=== PATIENT | male | born 1995 | race Caucasian/White ===

== ENCOUNTER 2020-12-14 09:08 | Emergency (ER) | payer BC, SELFPAY ==
[2020-12-14 09:25] VITALS: BP 122/80; PULSE 51; RESP 16; TEMP 36.6; O2SAT 100; BMI 19.5
[2020-12-14 10:00] VITALS: BP 112/70; PULSE 63; RESP 14; O2SAT 100
[2020-12-14 10:18] VITALS: BP 131/108; PULSE 48; RESP 16; TEMP 36.3; O2SAT 100
--- NOTE | 2020-12-14 10:18 | US_ITS ---
WS: [id number] SCROTAL ULTRASOUND REASON FOR EXAM: L testicular pain COMPARISON: None available. TECHNIQUE: Grayscale and duplex color Doppler ultrasound examination of the scrotum. FINDINGS: RIGHT: Right testes measures 5.4 cm x 3.0 cm x 2.9 cm. Normal blood flow. Right epididymis measures 1.1 cms in maximum dimension. LEFT: Left testes measures 4.8 cm x 3.2 cm x 2.4 cm. Small hydrocele. Normal blood flow Left epididymis 3.74 cm in maximum dimension. US/US scrotum [id number] IMPRESSION: No findings of testicular torsion. Findings most compatible with epididymoorchi tis of the left hemiscrotum.
--- NOTE | 2020-12-14 10:19 | ED_ITS ---
HPI - Male Genitourinary General: Chief complaint: Urogenital-Male Stated complaint: Pain in Groin Time Seen by Provider: 12/14/20 09:57 Source: patient Mode of arrival: ambulatory Limitations: no limitations History of Present Illness: HPI Narrative: Patient is a 25-year-old male who presents to ED today with a complaint of left testicular pain that began around 6 AM after he woke from sleep. He states pain was initially constant and throughout work waxed and waned. He has not noticed any swelling, redness, or warmth. He is not complaining of any penile discharge or dysuria. He has not noticed any rashes or lesions. Denies new sexual partners-monogamous with of four years. MD Complaint: testicle pain Onset (ago): hour(s) Duration: constant and intermittent Location: left testicle Severity: moderate Quality: aching and sharp Relieving factors: none Exacerbating factors: none Associated symptoms: Reports no associated symptoms; Deny dysuria, hematuria, nausea, urinary incontinence or vomiting Review of Systems Const: Denies: fever(s), chills, body aches, fatigue or malaise ENMT: Denies: throat pain or odynophagia Card: Denies: chest pain Resp: Denies: dyspnea GI: Denies: abdominal pain, nausea, vomiting or diarrhea : Reports: testicular pain; Denies: flank pain, difficulty urinating, dysuria, urinary frequency, urinary urgency, urinary hesitancy, change in urine stream, urinary incontinence, hematuria, genital lesions, penile discharge, testicular mass, scrotal swelling, difficulty with ejactulations, painful ejaculations, hematospermia or erectile dysfunction Musc: Denies: neck pain or back pain Skin/Breast: Denies: rash Neuro: Denies: headache(s) Physical Exam Const: COMMON NORMALS: no acute distress, average body habitus, patient oriented x3, no limitations, healthy appearing, alert and well nourished GI: COMMON NORMALS: Normal to inspection, nondistended, normoactive bowel sounds present, Soft to palpation, non-tender, No hepatosplenomegaly present and no masses PALPATION: Yes Soft to palpation and Yes No hepatosplenomegaly present : COMMON NORMALS: Yes no CVA tenderness, Yes normal external exam, Yes no sc rotal swelling and Yes No hernias present BLADDER/KIDNEY EXAM: Yes no CVA tenderness PENIS: normal penis and circumcised MEATUS: meatus normal and no meatla discharge SCROTUM: Yes testes descended bilaterally TESTES: Yes testicular lie normal and Yes epididymal tenderness (L) Back/Pelvis: COMMON NORMALS: no CVA tenderness Neuro: COMMON NORMALS: patient oriented x3 SENSORIUM/ORIENTATION: Yes alert Course Vital Signs: Vital signs: Vital Signs Temperature 97.3 F L 12/14/20 10:18 Pulse Rate 48 L 12/14/20 10:18 Respiratory Rate 16 12/14/20 10:18 Blood Pressure 131/108 12/14/20 10:18 Pulse Oximetry 100 12/14/20 10:18 MDM - Male MDM Narrative: Medical decision making narrative: Patient with mild left epididymoorchitis. Given IM rocephin here and will be sent home on doxycycline. Gonorrhea/chlamydia ran off of his urine. Patient states he is monogamous with his for a years. Recommend abstaining from sexual activity until he knows results. Return to ED precautions given. Lab Data: Labs: Lab Results 12/14/20 Range/Units 10:54 Urine Color Yellow (Yellow) Urine Appearance Clear (CLEAR) Urine pH 6.5 (5-7) Ur Specific Gravit y 1.015 (1.005-1.030) Urine Protein Neg (Negative) Urine Glucose (UA) Norm (Normal) Urine Ketones Negative (Negative) Urine Blood Neg (Negative) Urine Nitrate Negative (Negative) Urine Bilirubin Neg (Negative) Urine Urobilinogen 1 H (Negative) mg/dL Ur Leukocyte Lynnette ase Negative (Negative) Imaging Data: US scrotum: Radiologist's impression: [address] [id number] ReportSigned Patient: Gianni Landry #: [id number]: 1995Acct#:[id number]/Sex: MAD Date: 12/14/20Loc: ERRoom/Bed:Attending Dr: Ordering Provider/Ordering MD: Wendy Malone Date of Service: 12/14/20 Procedure(s): US scrotum 52322 Accession Number(s): [id number] Report Number: [id number] WS: [id number] SCROTAL ULTRASOUND REASON FOR EXAM: L testicular pain COMPARISON: None available. TECHNIQUE: Grayscale and duplex color Doppler ultrasound examination of the scrotum. FINDINGS: RIGHT: Right testes measures 5.4 cm x 3.0 cm x 2.9 cm. Normal blood flow. Right epididymis measures 1.1 cms in maximum dimension. LEFT: Left testes measures 4.8 cm x 3.2 cm x 2.4 cm. Small hydrocele. Normal blood flow Left epididymis 3.74 cm in maximum dimension. US/US scrotum [id number] IMPRESSION: No findings of testicular torsion. Findings most compatible with epididymoorchitis of the left hemiscrotum. Dictated By:Daniel Quinones Jr MDSigned By:Daniel Quinones Jr MDSigned Date/Time:12/14/20 1118DD/ 1108 Discharge Plan Discharge Patient Disposition: Home Clinical Impression: Left epididymitis Condition: Stable Prescriptions: New doxycycline monohydrate 100 mg capsule 100 mg PO Q12H 10 Days Qty: 20 RF: 0 Discharge Orders: Discharge ED (Routine); Ordered 12/14/20 Ordered By: Wendy Malone Patient Instructions: Epididymitis (ED), Epididymo-orchitis (ED) Activity Restrictions/Additional Instructions: Please refrain from sexual activity until you know the results of your swabs today. Please fill and finish full antibiotic course. As we discussed ice and elevation to the scrotum. If symptoms do not improve over the next 3 to 4 days please follow-up with primary care as you may require a referral to a urologist. You need to return to the emergency department for severe pain, redness, swelling, or any other concerns you may have. Coding Level of Care Code ED [employer] for Anitag Fwd Exam Expanded Problem Focused
[2020-12-14 11:09] LABS: Add Urine Microscopic? NO; Charge for UA Resulting for Rev
[2020-12-14 11:16] LABS: Bilirubin Urine Neg (Negative); Blood Urine Neg (Negative); Glucose Urine UA Norm (Normal); Ketones Urine Negative (Negative); Leukocyte Esterase Urine Negative (Negative); Nitrate Urine Negative (Negative); Protein Urine Neg (Negative); Specific Gravity, Urine 1.015 (1.005-1.030); Urine Appearance Clear (CLEAR); Urine Color Yellow (Yellow); Urobilinogen Urine 1 mg/dL (Negative); pH Urine 6.5 (5-7)
[2020-12-14 12:19] VITALS: BP 103/72; PULSE 47; O2SAT 100
== END 2020-12-14 12:21 | disposition home or self-care (01) ==
PROVIDERS: Emergency Provider Physician Assistant
DX: N45.1 Epididymitis (principal)
CPT/HCPCS: 76870; 81003; 87491; 87591; 99283

== ENCOUNTER 2021-07-02 20:14 | Emergency (ER) | payer BC, SELFPAY ==
[2021-07-02 20:19] VITALS: PULSE 70; RESP 16; TEMP 37.2; O2SAT 99; BMI 19.0
--- NOTE | 2021-07-02 21:16 | W.ED.GENADLT ---
Documented by User: BEN Ji 07/02/21 23:08 HPI - General Adult General: Chief complaint: General Medical Stated complaint: ABD Pain\Back Pain Time Seen by Provider: 07/02/21 21:16 History of Present Illness: 26-year-old male patient comes in today with complaints of headache starting last night. Today he started having severe abdominal pain in the left flank radiating into his abdomen. Patient reported that the headache stopped when his abdominal pain started. On exam patient appears well. Patient appears no pain. Patient reported that on arrival his pain had resolved and he was back to normal. Associated symptoms: Reports headache(s) Review of Systems GI: Reports: abdominal pain Neuro: Reports: headache(s) PFSH ED PFSH: Social History (Updated 12/28/20 @ 15:12 by Gorge Yost LPN) Smoking and tobacco status: never smoked Alcohol intake: current Alcohol intake frequency: holidays/special occasions only Physical Exam Const: COMMON NORMALS: alert HENMT: COMMON NORMALS: normocephalic HEAD & SCALP: normocephalic Neck/C-Spine: COMMON NORMALS: full ROM and no meningeal signs Resp: COMMON NORMALS: normal respiratory effort and clear to auscultation bilaterally AUSCULTATION: clear to auscultation bilaterally Cardio: COMMON NORMALS: regular rate and regular rhythm RATE: regular rate RHYTHM: regular rhythm GI: COMMON NORMALS: Soft to palpation and non-tender PALPATION: Yes Soft to palpation : COMMON NORMALS: Yes no CVA tenderness BLADDER/KIDNEY EXAM: Yes no CVA tenderness Back/Pelvis: COMMON NORMALS: no CVA tenderness Extremity: COMMON NORMALS: normal to inspection Neuro: SENSORIUM/ORIENTATION: Yes alert MENINGEAL SIGNS: Yes no meningeal signs Psych: COMMON NORMALS: cooperative Skin: COMMON NORMALS: no rashes or lesions noted GENERAL SKIN EXAM: no rashes or lesions noted Course Vital Signs: Vital signs: Vital Signs Temperature 98.9 F 07/02/21 20:19 Pulse Rate 70 07/02/21 20:19 Respiratory Rate 16 07/02/21 20:19 Pulse Oximetry 99 07/02/21 20:19 [facility] - General Adult Medical Decision Making 26-year-old male comes in today with complaints of headache starting last night and abdominal pain today. Patient reports that last night around 7:00 he started having a headache with sensitivity to light and nausea. Patient kept the headache for most of the day until around 4:00 this evening. At that time patient started having onset of severe abdominal cramping and discomfort and relief of headache. Patient says since arriving to the ER at 830 his headache and abdominal pain resolved. On exam patient appears well. Patient has some muscle tenderness in the lumbar spine and of his back. No spinal tenderness is noted. No meningeal sign is noted. Patient moves all extremities well. Vital signs are normal. Differential diagnosis includes migraine syndrome, viral syndrome, renal calculi. Urinalysis had significant amount of blood. CBC was unremarkable. CMP did have some elevation in bilirubin and lipase which may relate some gallbladder disease but remainder of liver enzymes were normal. CT of abdomen pelvis noted a nonobstructing 2 mm calculus in the mid left kidney but otherwise no other abnormality was noted. I believe the patient probably had a kidney stone that passed and he has resolved to normal. Recommended monitoring for fever or other symptoms and return as needed. Patient reported understanding and agreed to plan. Lab Data : 07/02/21 21:20 07/02/21 21:20 Radiology Impressions Abdomen/Pelvis CT 07/02/21 21:47 IMPRESSION: 1. Nonobstructing 2 mm calculus in the mid left kidney, series 2, image 43. No additional renal calculi noted on either side. No hydronephrosis. Ureters are unremarkable as demonstrated. No obstructive uropathy demonstrated. 2. The other solid organs are unremarkable as demonstrated. 3. No acute bowel abnormality identified. Laboratory Results WBC 6.6 10^3/uL (4.0-10.0) 07/02/21 21: RBC 4.73 10^6/uL (4.1-5.3) 07/02/21 21:20 Hgb 14.3 g/dL (11.7-16.6) 07/02/21 21: Hct 43.1 % (42.0-52.0) 07/02/21: MCV 91.1 fl (80-94) 07/02/21 21:20 MCH 30.2 pg (28.0-34.0) 07/02/21 21: MCHC 33.2 g/dL (30.0-36.0) 07/02/21: RDW 12.1 % (12.1-15.1) 07/02/21 21:20 Plt Count 226 10^3/cmm (130-400) 07/02/21 21:20 MPV 10.7 fL (7.4-10.4) H 07/02/21 21:20 Neut % (Auto) 65.8 % 07/02/21 21:20 Lymph % (Auto) 12.7 % 07/02/21 21:20 Barber % (Auto) 19.8 % 07/02/21 21:20 Eos % (Auto) 0.6 % 07/02/21 21:20 Baso % (Auto) 0.8 % 07/02/21 21:20 Neut # (Auto) 4.31 10^3/uL (1.8-7.7) 07/02/21 21:20 Lymph # (Auto) 0.8 10^3/uL (0.8-4.8) 07/02/21 21:20 Barber # (Auto) 1.3 10^3/uL (0.2-0.9) H 07/02/21 21:20 Eos # (Auto) 0.0 10^3/uL (0.0-0.8) 07/02/21 21:20 Baso # (Auto) 0.1 10^3/uL (0.0-0.1) 07/02/21 21:20 Nucleated RBC % (auto) 0 % 07/02/21 21:20 Nucleated RBCs # 0.0 /100WBC 07/02/21 21:20 Sodium 136 mmol/L (136-145) 07/02/21 21:20 Potassium 4.1 mmol/L (3.5-5.1) 07/02/21 21:20 Chloride 99 mmol/L (98-107) 07/02/21 21:20 Carbon Dioxide 26 mmol/L (22-29) 07/02/21 21:20 Anion Gap 15.1 (5-19) 07/02/21 21:20 BUN 12 mg/dL (6-20) 07/02/21 21:20 Creatinine 0.7 mg/dL (0.7-1.2) 07/02/21 21:20 GFR Calculation 134.3 mL/min (90-130) H 07/02/21 21:20 Glucose 87 mg/dL (65-115) 07/02/21 21:20 Calculated Osmolality 281 mOsm/kg (285-295) L 07/02/21 21:20 Calcium 8.6 mg/dL (8.5-10.5) 07/02/21 21:20 Total Bilirubin 1.6 mg/dL (0.15-1.2) H 07/02/21 21:20 AST 18 U/L (0-40) 07/02/21 21: ALT 10 U/L (0-41) 07/02/21 21:20 Alkaline Phosphatase 91 IU/L (40-130) 07/02/21 21:20 Total Protein 7.7 g/dL (6.6-8.7) 07/02/21 21: Albumin 5.0 g/dL (3.5-5.2) 07/02/21 21: Globulin 2.7 g/dL (1.3-4.6) 07/02/21 21: Lipase 72 U/L (13-60) H 07/02/21 21:20 Urine Color Yellow (Yellow) 07/02/21 21: Urine Appearance Clear (CLEAR) 07/02/21 21: Urine pH 5 (5-7) 07/02/21: Ur Specific [place] 1.020 (1.005-1.030) 07/02/21: Urine Protein Neg (Negative) 07/02/21 21: Urine Glucose (UA) Norm (Normal) 07/02/21: Urine Ketones Negative (Negative) 07/02/21: Urine Blood 2+ (Negative) H 07/02/21: Urine Nitrate Negative (Negative) 07/02/21 21: Urine Bilirubin Neg (Negative) 07/02/21 21: Urine Urobilinogen Norm mg/dL (Negative) 07/02/21: Ur Leukocyte Esterase Negative (Negative) 07/02/21: Urine RBC 5-10 /hpf (0-2) H 07/02/21 21:22 Urine WBC 0-4 /hpf (0-5) H 07/02/21 21:22 Ur Squamous Epith Cells 0-4 /hpf (0-5) H 07/02/21 21:22 Calcium Oxalate Crystal 0-4 /hpf H 07/02/21 21:22 Amorphous Sediment Not Reportable 07/02/21 21:22 Urine Bacteria Trace /hpf (NONE) 07/02/21 21:22 Urine Mucus 1+ /hpf 07/02/21 21:22 Discharge Plan Discharge Patient Disposition: Home Clinical Impression: Renal colic on left side Condition: Stable Prescriptions: No Action levofloxacin 500 mg tablet 500 mg PO DAILY 10 Days Qty: 10 0RF Discharge Orders: Discharge ED (Routine); Ordered 07/02/21 Ordered By: Solomon Harrison Discharge Diet: Usual diet Discharge Activity: Increase activity as tolerated Patient Instructions: Abdominal Pain (ED) Activity Restrictions/Additional Instructions: Home and rest. Drink plenty of fluids. Activity as tolerated. Follow-up with primary care as needed. Return to the ER for high fever greater than 100.4, or new concerns. Coding Level of Care Code ED Raw Material Planner for Chg Fwd Exam Comprehensive Medical Decision Making Moderate Complexity Time Spent (min) 30 Documented by User: Shan Sweet DO 07/03/21 00:27 HPI - General Adult General: Chief complaint: General Medical Stated complaint: ABD Pain\Back Pain Time Seen by Provider: 07/02/21 21:16 [facility] ED PFSH: Social History (Updated 12/28/20 @ 15:12 by Gorge Yost LPN) Smoking and tobacco status: never smoked Alcohol intake: current Alcohol intake frequency: holidays/special occasions only Course Vital Signs: Vital signs: Vital Signs Temperature 98.9 F 07/02/21 20:19 Pulse Rate 70 07/02/21 20:19 Respiratory Rate 16 07/02/21 20:19 Pulse Oximetry 99 07/02/21 20:19 MDM - General Adult Medical Decision Making 26-year-old male comes in today with complaints of headache starting last night and abdominal pain today. Patient reports that last night around 7:00 he started having a headache with sensitivity to light and nausea. Patient kept the headache for most of the day until around 4:00 this evening. At that time patient started having onset of severe abdominal cramping and discomfort and relief of headache. Patient says since arriving to the ER at 830 his headache and abdominal pain resolved. On exam patient appears well. Patient has some muscle tenderness in the lumbar spine and of his back. No spinal tenderness is noted. No meningeal sign is noted. Patient moves all extremities well. Vital signs are normal. Differential diagnosis includes migraine syndrome, viral syndrome, renal calculi. Urinalysis had significant amount of blood. CBC was unremarkable. CMP did have some elevation in bilirubin and lipase which may relate some gallbladder disease but remainder of liver enzymes were normal. CT of abdomen pelvis noted a nonobstructing 2 mm calculus in the mid left kidney but otherwise no other abnormality was noted. I believe the patient probably had a kidney stone that passed and he has resolved to normal. Recommended monitoring for fever or other symptoms and return as needed. Patient reported understanding and agreed to plan. This patient was originally seen by BEN Del Valle.? I agree with his history, evaluation, and treatment. Lab Data : 07/02/21 21:20 07/02/21 21:20 Radiology Impressions Abdomen/Pelvis CT 07/02/21 21:47 IMPRESSION: 1. Nonobstructing 2 mm calculus in the mid left kidney, series 2, image 43. No additional renal calculi noted on either side. No hydronephrosis. Ureters are unremarkable as demonstrated. No obstructive uropathy demonstrated. 2. The other solid organs are unremarkable as demonstrated. 3. No acute bowel abnormality identified. Laboratory Results WBC 6.6 10^3/uL (4.0-10.0) 07/02/21 21: RBC 4.73 10^6/uL (4.1-5.3) 07/02/21 21:20 Hgb 14.3 g/dL (11.7-16.6) 07/02/21:20 Hct 43.1 % (42.0-52.0) 07/02/21 21:20 MCV 91.1 fl (80-94) 07/02/21 21:20 MCH 30.2 pg (28.0-34.0) 07/02/21 21: MCHC 33.2 g/dL (30.0-36.0) 07/02/21:20 RDW 12.1 % (12.1-15.1) 07/02/21 21:20 Plt Count 226 10^3/cmm (130-400) 07/02/21 21:20 MPV 10.7 fL (7.4-10.4) H 07/02/21 21:20 Neut % (Auto) 65.8 % 07/02/21 21:20 Lymph % (Auto) 12.7 % 07/02/21 21:20 Barber % (Auto) 19.8 % 07/02/21 21:20 Eos % (Auto) 0.6 % 07/02/21 21:20 Baso % (Auto) 0.8 % 07/02/21 21:20 Neut # (Auto) 4.31 10^3/uL (1.8-7.7) 07/02/21 21:20 Lymph # (Auto) 0.8 10^3/uL (0.8-4.8) 07/02/21 21:20 Barber # (Auto) 1.3 10^3/uL (0.2-0.9) H 07/02/21 21:20 Eos # (Auto) 0.0 10^3/uL (0.0-0.8) 07/02/21 21:20 Baso # (Auto) 0.1 10^3/uL (0.0-0.1) 07/02/21 21:20 Nucleated RBC % (auto) 0 % 07/02/21 21:20 Nucleated RBCs # 0.0 /100WBC 07/02/21 21:20 Sodium 136 mmol/L (136-145) 07/02/21 21:20 Potassium 4.1 mmol/L (3.5-5.1) 07/02/21 21:20 Chloride 99 mmol/L (98-107) 07/02/21 21:20 Carbon Dioxide 26 mmol/L (22-29) 07/02/21 21:20 Anion Gap 15.1 (5-19) 07/02/21 21:20 BUN 12 mg/dL (6-20) 07/02/21 21:20 Creatinine 0.7 mg/dL (0.7-1.2) 07/02/21 21:20 GFR Calculation 134.3 mL/min (90-130) H 07/02/21 21:20 Glucose 87 mg/dL (65-115) 07/02/21 21:20 Calculated Osmolality 281 mOsm/kg (285-295) L 07/02/21 21:20 Calcium 8.6 mg/dL (8.5-10.5) 07/02/21 21:20 Total Bilirubin 1.6 mg/dL (0.15-1.2) H 07/02/21 21:20 AST 18 U/L (0-40) 07/02/21 21: ALT 10 U/L (0-41) 07/02/21 21:20 Alkaline Phosphatase 91 IU/L (40-130) 07/02/21 21:20 Total Protein 7.7 g/dL (6.6-8.7) 07/02/21 21: Albumin 5.0 g/dL (3.5-5.2) 07/02/21 21: Globulin 2.7 g/dL (1.3-4.6) 07/02/21 21: Lipase 72 U/L (13-60) H 07/02/21 21: Urine Color Yellow (Yellow) 07/02/21 21: Urine Appearance Clear (CLEAR) 07/02/21: Urine pH 5 (5-7) 07/02/21: Ur Specific [place] 1.020 (1.005-1.030) 07/02/21: Urine Protein Neg (Negative) 07/02/21: Urine Glucose (UA) Norm (Normal) 07/02/21: Urine Ketones Negative (Negative) 07/02/21: Urine Blood 2+ (Negative) H 07/02/21: Urine Nitrate Negative (Negative) 07/02/21 21: Urine Bilirubin Neg (Negative) 07/02/21 21: Urine Urobilinogen Norm mg/dL (Negative) 07/02/21: Ur Leukocyte Esterase Negative (Negative) 07/02/21: Urine RBC 5-10 /hpf (0-2) H 07/02/21 21: Urine WBC 0-4 /hpf (0-5) H 07/02/21 21: Ur Squamous Epith Cells 0-4 /hpf (0-5) H 07/02/21 21: Calcium Oxalate Crystal 0-4 /hpf H 02/12/22 21:22 Amorphous Sediment Not Reportable 07/02/21 21:22 Urine Bacteria Trace /hpf (NONE) 07/02/21 21:22 Urine Mucus 1+ /hpf 07/02/21 21:22 Discharge Plan Discharge Patient Disposition: Home Clinical Impression: Renal colic on left side Condition: Stable Prescriptions: No Action levofloxacin 500 mg tablet 500 mg PO DAILY 10 Days Qty: 10 0RF Discharge Orders: Discharge ED (Routine); Ordered 07/02/21 Ordered By: Solomon Harrison Discharge Diet: Usual diet Discharge Activity: Increase activity as tolerated Patient Instructions: Abdominal Pain (ED) Activity Restrictions/Additional Instructions: Home and rest. Drink plenty of fluids. Activity as tolerated. Follow-up with primary care as needed. Return to the ER for high fever greater than 100.4, or new concerns. Coding Level of Care Code ED Raw Material Planner for Gail Fwd Exam Comprehensive Medical Decision Making Moderate Complexity Time Spent (min) 30
[2021-07-02 21:30] LABS: Basophils # 0.1 10^3/uL (0.0-0.1); Basophils % 0.8 %; Eosinophils % 0.6 %; Hematocrit 43.1 % (42.0-52.0); Hemoglobin 14.3 g/dL (11.7-16.6); Lymphocytes # 0.8 10^3/uL (0.8-4.8); Lymphocytes % 12.7 %; Mean Corpuscular HGB Conc 33.2 g/dL (30.0-36.0); Mean Corpuscular Hemoglobin 30.2 pg (28.0-34.0); Mean Corpuscular Volume 91.1 fl (80-94); Mean Platelet Volume 10.7 fL (7.4-10.4); Monocytes # 1.3 10^3/uL (0.2-0.9); Monocytes % 19.8 %; Neutrophils # 4.31 10^3/uL (1.8-7.7); Neutrophils % 65.8 %; Nucleated Red Blood Cells % 0 %; Platelet Count 226 10^3/cmm (130-400); Red Blood Count 4.73 10^6/uL (4.1-5.3); Red Cell Distribution Width 12.1 % (12.1-15.1); White Blood Count 6.6 10^3/uL (4.0-10.0)
[2021-07-02 21:45] LABS: Add Urine Microscopic? YES; Bilirubin Urine Neg (Negative); Blood Urine 2+ (Negative); Glucose Urine UA Norm (Normal); Ketones Urine Negative (Negative); Leukocyte Esterase Urine Negative (Negative); Nitrate Urine Negative (Negative); Protein Urine Neg (Negative); Squamous Epithelial Cell Urine 0-4 /hpf (0-5); Urine Appearance Clear (CLEAR); Urine Color Yellow (Yellow); Urobilinogen Urine Norm (Negative); WBC Urine 0-4 /hpf (0-5); pH Urine 5 (5-7)
[2021-07-02 21:46] LABS: Add Urine Culture? No; Bacteria Urine TRACE /hpf; Calcium Oxalate Crystals Urine 0-4 /hpf; Mucus Urine 1+ /hpf
--- NOTE | 2021-07-02 21:47 | CTR_ITS ---
PROCEDURE INFORMATION: Exam: CT Abdomen And Pelvis Without Contrast Exam date and time: 07/02/2021 9:47 PM Age: 26 years old Clinical indication: Abdominal pain; Flank; Left; Additional info: Left flank pain TECHNIQUE: Imaging protocol: Computed tomography of the abdomen and pelvis without contrast. Radiation optimization: All CT scans at this facility use at least one of these dose optimization techniques: automated exposure control; mA and/or kV adjustment per patient size (includes targeted exams where dose is matched to clinical indication); or iterative reconstruction. COMPARISON: CT Abdomen/Pelvis Renal [id number] 08/13/2018 10:23 AM RADIATION DOSE METRICS: Total DLP (mGy-cm): 492.88 FINDINGS: Lungs: The lung bases appear unremarkable. Liver: The liver is unremarkable in appearance. The liver is unremarkable in appearance. Gallbladder and bile ducts: No calcified gallstones in the gallbladder. No gallbladder wall thickening. No pericholecystic fluid. Pancreas: The pancreas is normal in appearance. No pancreatic duct dilatation. The pancreas is normal in appearance. No pancreatic duct dilatation. Spleen: The spleen is normal in size and appearance. The spleen is normal in size and appearance. Adrenal glands: The adrenal glands appear within normal limits. The adrenal glands appear within normal limits. Kidneys and ureters: Nonobstructing 2 mm calculus in the mid left kidney, series 2, image 43. No additional renal calculi noted on either side. No hydronephrosis. Ureters are unremarkable as demonstrated. No obstructive uropathy. Stomach and bowel: No acute bowel abnormality identified. Appendix: No evidence of appendicitis. Intraperitoneal space: No pneumoperitoneum. No significant fluid collection. Vasculature: No abdominal aortic aneurysm. Lymph nodes: No enlarged lymph nodes. Urinary bladder: Urinary bladder is almost completely empty. The bladder appears unremarkable. Reproductive: Unremarkable as visualized. Bones/joints: No fracture or other acute osseous abnormality. Soft tissues: Unremarkable. CT/CT kidney stone [id number] IMPRESSION: 1. Nonobstructing 2 mm calculus in the mid left kidney, series 2, image 43. No additional renal calculi noted on either side. No hydronephrosis. Ureters are unremarkable as demonstrated. No obstructive uropathy demonstrated. 2. The other solid organs are unremarkable as demonstrated. 3. No acute bowel abnormality identified.
[2021-07-02 21:59] LABS: Alanine Aminotransferase 10 U/L (0-41); Alkaline Phosphatase 91 IU/L (40-130); Aspartate Amino Transferase 18 U/L (0-40); Blood Urea Nitrogen 12 mg/dL (6-20); Calcium 8.6 mg/dL (8.5-10.5); Carbon Dioxide 26 mmol/L (22-29); Chloride 99 mmol/L (98-107); Creatinine Clr Calc Pharmacy 125.9978; Globulin 2.7 g/dL (1.3-4.6); Glomerular Filtration Rate 134.3 mL/min (90-130); Glucose 87 mg/dL (65-115); Lipase 72 U/L (13-60); Osmolality Calculated 281 mOsm/kg (285-295); Sodium 136 mmol/L (136-145); Total Bilirubin 1.6 mg/dL (0.15-1.2); Total Protein 7.7 g/dL (6.6-8.7)
[2021-07-02 22:00] LABS: Anion Gap 15.1 (5-19); Potassium 4.1 mmol/L (3.5-5.1)
== END 2021-07-02 23:28 | disposition home or self-care (01) ==
PROVIDERS: Emergency Medicine; Emergency Provider Nurse Practitioner Family
DX: N23 Unspecified renal colic (principal)
CPT/HCPCS: 36415; 74176; 80053; 81001; 83690; 85025; 99282

== ENCOUNTER 2022-01-30 10:30 | Emergency (ER) | payer SELFPAY ==
[2022-01-30 10:33] VITALS: BP 133/85; PULSE 67; RESP 14; TEMP 36.5; O2SAT 100; BMI 19.0
--- NOTE | 2022-01-30 10:40 | US_ITS ---
WS: [id number] TESTICULAR ULTRASOUND HISTORY: Pain, left-sided pain. COMPARISON: 12/14/2020 TECHNIQUE: Real-time and color Doppler imaging or utilized to perform a testicular ultrasound. Right testicle: 5.1 cm x 3.0 cm x 2.4 cm. Normal size and echogenicity. No mass or torsion. Normal color Doppler is present throughout. Systolic and diastolic velocities are both present. No significant hydrocele. Right epididymis: Normal epididymis with no increased vascularity. Left testicle: 5.0 cm x 2.7 cm x 2.8 cm. Normal size and echogenicity. No mass or torsion. Increased color Doppler throughout the LEFT testicle as compared to the RIGHT. This is only a mild in crease. Mild enlargement and heterogeneity within the LEFT epididymis. No significant hydrocele. Left epididymis: Mild enlargement and increased vascularity. US/US scrotum [id number] IMPRESSION: 1. No testicular mass or torsion. 2. Mild LEFT epididymo-orchitis.
[2022-01-30 11:53] VITALS: BP 133/85; PULSE 67; RESP 14; TEMP 36.5; O2SAT 100
--- NOTE | 2022-01-30 12:02 | ED_ITS ---
HPI - Male Genitourinary General: Chief complaint: Urogenital-Male Stated complaint: Groin pain Time Seen by Provider: 01/30/22 10:40 Source: patient Mode of arrival: ambulatory History of Present Illness: 26-year-old male presents emergency room with left testicular pain for the last 3 weeks. Initially was intermittent notes for compressively worsening and constant. Causes him some nausea. He has not vomited at all. Worse without testicular support. He denies dysuria urgency or frequency or penile drainage. No bulging or swelling and has been noted in the groin. MD Complaint: testicle pain Onset (ago): week(s) (3) Duration: progressively worsening Location: left testicle Severity: moderate Quality: aching Relieving factors: other (Testicular support) Exacerbating factors: none Associated symptoms: Deny discharge, dysuria, fevers/chills, hematuria, nausea, rash, swelling, urinary incontinence, urinary retention, mass or vomiting Review of Systems Const: Denies: fever(s), chills, body aches, change in appetite, fatigue or malaise ENMT: Denies: throat pain, ear or mastoid pain, nasal discharge or nasal congestion Card: Denies: chest pain, edema, dyspnea on exertion or orthopnea Resp: Denies: dyspnea, productive cough or non-productive cough GI: Denies: nausea or vomiting : Denies: dysuria, urinary incontinence or hematuria Skin/Breast: Denies: rash or pruritus [facility] ED PFSH: Medical History (Updated 01/30/22 @ 13:12 by Juventino Catalan DO) Epididymitis with no abscess Nicotine dependence, chewing tobacco, with unspecified nicotine-induced disorders Renal calculi Social History Smoking and tobacco status: never smoked Alcohol intake: current Alcohol intake frequency: holidays/special occasions only Physical Exam Const: GENERAL APPEARANCE: cooperative and comfortable ORIENTATION/CONSCIOUSNESS: Yes awake, Yes oriented to person, Yes oriented to place and Yes oriented to time HENMT: COMMON NORMALS: normocephalic, atraumatic and hearing grossly normal bilaterally HEAD & SCALP: normocephalic and atraumatic Resp: COMMON NORMALS: normal respiratory effort, No retractions, No use of accessory muscles and clear to auscultation bilaterally AUSCULTATION: clear to auscultation bilaterally Cardio: COMMON NORMALS: regular rate, regular rhythm and No murmurs present (Cardio) RATE: regular rate RHYTHM: regular rhythm GI: COMMON NORMALS: Soft to palpation and No hepatosplenomegaly present AUSCULTATION: Yes normoactive bowel sounds PALPATION: Yes Soft to palpation, No Tenderness to palpation present (GI), No Guarding due to palpation present (GI) and Yes No hepatosplenomegaly present : COMMON NORMALS: Yes no CVA tenderness BLADDER/KIDNEY EXAM: Yes no CVA tenderness MALE GROIN/PERINEUM EXAM: No edema, No erythema, No hernia, No inguinal lymphadenopathy and Yes tenderness PENIS: normal penis and circumcised MEATUS: meatus normal, no meatla discharge and No Blood at meatus present SCROTUM: Yes testes descended bilaterally, No inguinal hernia, Yes Scrotal tenderness present, No erythematous, No ecchymosis, No edematous, No scrotal swelling, No Scrotal lesions present and No scrotal mass Back/Pelvis: COMMON NORMALS: no CVA tenderness Extremity: COMMON NORMALS: normal to inspection, capillary refill normal, no clubbing, cyanosis or edema, no calf tenderness and no pedal edema Neuro: SENSORIUM/ORIENTATION: Yes oriented to person, Yes oriented to place and Yes oriented to time Skin: COMMON NORMALS: no rashes or lesions noted GENERAL SKIN EXAM: no rashes or lesions noted Course Vital Signs: Vital signs: Vital Signs Temperature 97.7 F 01/30/22 11:53 Pulse Rate 68 01/30/22 13:51 Respiratory Rate 18 01/30/22 13:51 Blood Pressure 117/85 01/30/22 13:51 Pulse Oximetry 98 01/30/22 13:51 Oxygen Delivery Ak thod 01/30/22 11:53 MDM - Male Medical Decision Making Scrotal ultrasound shows epididymitis orchitis started on doxycycline use diclofenac follow-up with primary care if worsens can reevaluate consider referral to urology. Medical Records I reviewed the patient's medical records. Lab Data I reviewed the patient's lab results. Radiology Impressions Scrotum Ultrasound 01/30/22 10:40 IMPRESSION: 1. No testicular mass or torsion. 2. Mild LEFT epididymo-orchitis. Laboratory Results Urine Color Yellow (Yellow) 01/30/22 Unknown Urine Appearance Clear (CLEAR) 01/30/22 Unknown Urine pH 8 (5-7) H 01/30/22 Unknown Ur Specific [employer] 1.005 (1.005-1.030) 01/30/22 Unknown Urine Protein Neg (Negative) 01/30/22 Unknown Urine Glucose (UA) Norm (Normal) 01/30/22 Unknown Urine Ketones Negative (Negative) 01/30/22 Unknown Urine Blood Neg (Negative) 01/30/22 Unknown Urine Nitrate Negative (Negative) 01/30/22 Unknown Urine Bilirubin Neg (Negative) 01/30/22 Unknown Prot Sulfosalicylic Acd Negative (Negative) 01/30/22 Unknown Urine Urobilinogen Norm mg/dL (Negative) 01/30/22 Unknown Ur Leukocyte Esterase Negative (Negative) 01/30/22 Unknown Discharge Plan Discharge Patient Disposition: Home Clinical Impression: Epididymitis with no abscess Condition: Stable Prescriptions: New doxycycline hyclate 100 mg capsule 100 mg PO BID 14 Days Qty: 28 0RF diclofenac sodium 75 mg tablet,delayed release (DR/EC) 75 mg PO Q12H PRN (Reason: pain) Qty: 20 0RF Discharge Orders: Discharge ED (Routine); Ordered 01/30/22 Ordered By: Juventino Catalan Discharge Diet: Usual diet Discharge Activity: Increase activity as tolerated Patient Instructions: Epididymo-Orchitis (ED), Opioid Safety Activity Restrictions/Additional Instructions: If not improving with prescribed medications follow-up with your primary care doctor. Coding Level of Care Code ED Application Internship for Chg Fwd Exam Detailed
[2022-01-30 12:49] LABS: Add Urine Microscopic? NO; Charge for UA Resulting for Rev
[2022-01-30 12:54] LABS: Bilirubin Urine Neg (Negative); Blood Urine Neg (Negative); Glucose Urine UA Norm (Normal); Ketones Urine Negative (Negative); Leukocyte Esterase Urine Negative (Negative); Nitrate Urine Negative (Negative); Protein Urine Neg (Negative); Specific Gravity, Urine 1.005 (1.005-1.030); Sulfosalicylic Acid Urine Negative (Negative); Urine Appearance Clear (CLEAR); Urine Color Yellow (Yellow); Urobilinogen Urine Norm (Negative); pH Urine 8 (5-7)
[2022-01-30 13:16] VITALS: BP 115/71; PULSE 61; RESP 16; O2SAT 97
[2022-01-30] MEDS: ketorolac 60 mg/2 mL INJ IM (13:22)
[2022-01-30] MEDS: cefTRIAXone 1,000 MG in lidocaine 1% 2.1 ML 1 MG IM (13:24)
[2022-01-30 13:51] VITALS: BP 117/85; PULSE 68; RESP 18; O2SAT 98
== END 2022-01-30 13:52 | disposition home or self-care (01) ==
PROVIDERS: Emergency Provider Family Medicine
DX: N45.1 Epididymitis (principal)
CPT/HCPCS: 76870; 81003; 96372; 99284; J0696; J1885

== ENCOUNTER 2025-01-14 17:19 | Emergency (ER) | payer SELFPAY ==
[2025-01-14 17:25] VITALS: BP 149/89; PULSE 70; RESP 16; TEMP 36.5; O2SAT 97
--- OUTSIDE RECORDS SUMMARY | 2025-01-14 17:25 | XMS_ITS | Clinical Summary ---
Author Organization [facility] Address [address] Attn: Epic Prelude ADT DORIAN TAVERA [id number] Care Team Providers Care Ab Initio Etl Developer Name Role Phone Unavailable Primary Care Provider Unavailabl e Allergies No known active allergies Active Problems Problem Noted Date Diagnosed Date Wrist pain, left 10/02/2012 Closed fracture of left radius 10/02/2012 Immunizations Immunization Administration Dates Next Due (ADACEL/BOOSTRIX)(10 YR UP) TDAP VACCINE, 0.5ML, IM 08/22/2007 (M-M-R II/PRIORIX)(12 MO UP) MEASLES, MUMPS AND RUBELLA VIRUS VACCINE, 0.5 ML IM/SUBCUT 01/04/1999,08/17/1994 Dt Dtp Dtap Vaccine 08/13/2006, 9,08/17/1994,10/13,1993,1993 HIB, Unspecified Formulation 08/17/1994, 1993,1993,06/09 Hepatitis A Vaccine 08/22/2007 Hepatitis B Vaccine 02/07/1994,1993,1992 IPV/OPV 01/04/1999, 4,1993,06/09 Meningococcal A Conjugate Vaccine IM 08/22/2007 Family History Medical History Relation Name Comments Healthy Father Healthy Mother Relation Name Status Comments Father Alive Mother Alive Social History Tobacco Use Types Packs/Day Years Used Date Smoking Tobacco: Every Day Cigarettes Smokeless Tobacco: Never Alcohol Use Standard Drinks/Week Comments No 0 (1 standard drink = 0.6 oz pur e alcohol) Sex and Gender Information Value Date Recorded Sex Assigned at Not on file 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
[2025-01-14 18:06] LABS: Hematocrit 41.8 % (37-53); Hemoglobin 14.20 g/dL (11.27-16.99); Mean Corpuscular HGB Conc 34.0 g/dL (30-55); Mean Corpuscular Hemoglobin 30.0 pg (27-33); Mean Corpuscular Volume 88.2 fl (82-101); Nucleated Red Blood Cells % 0 %; Platelet Count 313 10^3/cmm (157-399); Red Blood Count 4.74 10^6/uL (3.85-5.65); White Blood Count 11.92 10^3/uL (3.29-11.43)
[2025-01-14 18:17] VITALS: BP 156/112; PULSE 53; RESP 16; O2SAT 98
[2025-01-14 18:20] LABS: Alanine Aminotransferase 16 U/L (0-41); Albumin Level 4.8 g/dL (3.5-5.2); Alkaline Phosphatase 76 U/L (40-130); Anion Gap 11.0 (5-19); Aspartate Amino Transferase 22 U/L (0-40); Blood Urea Nitrogen 19 mg/dL (6-20); Calcium 9.6 mg/dL (8.5-10.5); Carbon Dioxide 31 mmol/L (22-29); Chloride 101 mmol/L (98-107); Globulin 3.2 g/dL (1.3-4.6); Glucose 107 mg/dL (65-115); Osmolality Calculated 291 mOsm/kg (285-295); Potassium 4.0 mmol/L (3.5-5.1); Sodium 139 mmol/L (136-145); Total Protein 8.0 g/dL (6.6-8.7)
[2025-01-14 18:23] LABS: Add Urine Microscopic? NO
[2025-01-14 18:30] VITALS: BP 159/110; PULSE 61; O2SAT 99
--- NOTE | 2025-01-14 18:30 | CTR_ITS ---
PROCEDURE INFORMATION: Exam: CT Abdomen And Pelvis Without Contrast Exam date and time: 01/14/2025 6:44 PM Age: 29 years old Clinical indication: Abdominal pain; Flank; Left; Additional info: L back/abdominal pain, HX stones TECHNIQUE: Imaging protocol: Computed tomography of the abdomen and pelvis without contrast. Radiation optimization: All CT scans at this facility use at least one of these dose optimization techniques: automated exposure control; mA and/or kV adjustment per patient size (includes targeted exams where dose is matched to clinical indication); or iterative reconstruction. COMPARISON: CT kidney stone [id number] 07/02/2021 10:12 PM RADIATION DOSE METRICS: Total DLP (mGy-cm): 357.39 FINDINGS: Liver: Normal. No mass. Gallbladder and biliary ducts: Normal. No calcified stones. No ductal dilation. Pancreas: Normal. No ductal dilation. Spleen: Normal. No splenomegaly. Adrenal glands: Normal. No mass. Kidneys and ureters: Nonobstructing right renal calculi. Obstructing left distal ureteral calculus measuring up to 4 mm in maximum dimension, with associated mild hydroureteronephrosis on the left. Stomach and bowel: Unremarkable. No obstruction. No mucosal thickening. Appendix: No evidence of appendicitis. Intraperitoneal space: Unremarkable. No free air. No significant fluid collection. Vasculature: Unremarkable. No abdominal aortic aneurysm. Lymph nodes: Unremarkable. No enlarged lymph nodes. Urinary bladder: Unremarkable as visualized. Reproductive: Unremarkable as visualized. Bones/joints: Unremarkable. No acute fracture. Soft tissues: Unremarkable. CT/CT kidney stone [id number] IMPRESSION: Nonobstructing right renal calculi. Obstructing left distal ureteral calculus measuring up to 4 mm in maximum dimension, with associated mild hydroureteronephrosis on the left.
--- NOTE | 2025-01-14 18:30 | ED_ITS ---
HPI - Abdominal Pain 2 General: Chief Complaint: Abdominal Pain Stated Complaint: L Kidney Pain Time Seen by Provider: 01/14/25 17:59 Source: patient Mode of arrival: ambulatory Limitations: no limitations History of Present Illness: Patient is a 29-year-old male who presents to the ED today for concern of a kidney stone. He states yesterday he began developing waxing and waning left- sided back pain that has since wrapped around into the left side of his abdomen and is now severe and persistent. He states he has had one previous episode of urolithiasis and states the pain is identical. He is having feelings of urinary urgency and hesitancy. He has not noted any hematuria. He has not had any episodes of vomiting. No fevers. He states his last stone passed spontaneously. MD elicited complaint: abdominal pain and flank pain Pertinent past history: kidney stones Onset (ago): day(s) Pain Consistency: constant Location: LLQ and L flank Severity: severe Quality: stabbing and sharp Radiation: LLQ Exacerbating factors: nothing Relieving factors: nothing Associated Symptoms: Reports nausea; Denies change in bowel habits, chills, dysuria, fever(s), hematuria and vomiting Related Data Previous Rx's ?Medication ?Instructions ?Recorded hydrocodone 5 mg-acetaminophen 325 1 tab PO Q6H PRN pa in #14 tabs 01/14/25 mg tablet ketorolac 10 mg tablet 10 mg PO Q8H PRN pain 3 days #9 01/14/25 tabs ondansetron 4 mg disintegrating 4 mg PO Q8H PRN nausea and 01/14/25 tablet vomiting #14 tabs tamsulosin 0.4 mg capsule (Flomax) 0.4 mg PO DAILY #10 caps 01/14/25 Allergies Allergy/AdvReac Type Severity Reaction Status Date / Time No Known Allergies Allergy Verified 01/30/22 11:58 Review of Systems 2 Const: Denies: fever(s), chills, body aches, fatigue or malaise Card: Denies: chest pain Resp: Denies: dyspnea GI: Reports: abdominal pain and nausea; Denies: vomiting or change in bowel habits : Reports: difficulty urinating, urinary urgency, urinary hesitancy and urinary dribbling; Denies: flank pain, dysuria, urinary frequency or hematuria Musc: Reports: back pain; Denies: neck pain, extremity pain, extremity swelling, joint pain, joint swelling or joint redness Skin/Breast: Denies: rash Neuro: Denies: headache(s), numbness in extremities, weakness in extremities or sensory changes PFSH ED 2 PFSH: Medical History Renal calculi Epididymitis with no abscess Nicotine dependence, chewing tobacco, with unspecified nicotine-induced disorders Social History Smoking and tobacco/nicotine status: never used tobacco/nicotine Alcohol intake: current Alcohol intake frequency: holidays/special occasions only Substance/Drug Use: never Physical Exam 2 Const: COMMON NORMALS: average body habitus, no limitations, healthy appearing, alert and well nourished GENERAL APPEARANCE: cooperative and in distress (appears uncomfortable due to pain) Resp: COMMON NORMALS: normal respiratory effort and clear to auscultation bilaterally AUSCULTATION: clear to auscultation bilaterally Cardio: COMMON NORMALS: regular rate and regular rhythm RATE: regular rate RHYTHM: regular rhythm GI: COMMON NORMALS: Normal to inspection, nondistended, normoactive bowel sounds present, Soft to palpation, No hepatosplenomegaly present and no masses INSPECTION: Yes normal to inspection AUSCULTATION: Yes normoactive bowel sounds PALPATION: Yes Soft to palpation, Yes Tenderness to palpation present (GI) (LLQ) Details: LLQ, No Guarding due to palpation present (GI), No Rigid due to palpation and Yes No hepatosplenomegaly present : BLADDER/KIDNEY EXAM: Yes CVA tenderness on the left (tenderness just below L CVA) Back/Pelvis: COMMON NORMALS: thoracic and lumbar spine normal to inspection, no thoracic nor lumbar tenderness, thoraco-lumbar ROM normal and straight leg raise negative bilaterally GENERAL BACK: Yes CVA tenderness Neuro: SENSORIUM/ORIENTATION: Yes alert Skin: COMMON NORMALS: no rashes or lesions noted GENERAL SKIN EXAM: no rashes or lesions noted Course 2 Vital Signs: Vital signs: Vital Signs Temperature 97.7 F 01/14/25 17:25 Pulse Rate 73 01/14/25 19:34 Respiratory Rate 16 01/14/25 18:17 Blood Pressure 110/72 01/14/25 19:34 Pulse Oximetry 97 01/14/25 19:34 Oxygen Delivery Me thod Room Air 01/14/25 19:34 MDM - Abdominal Pain Medical Decision Making Patient was found to have a left distal ureter 4 mm calculi. This should pass spontaneously. His vital signs are stable. He reports significant relief after IV Toradol and Zofran. Blood work overall is nonactionable. His urine with hematuria but no evidence for infection. They were only able to perform microscopy due to small sample provided. He will be sent home with a urine strainer and urology follow-up as well as pain/nausea medications and Flomax. Signs and symptoms that should prompt a medical reevaluation were discussed with patient. Medical Records I reviewed the patient's medical records. Lab Data I reviewed the patient's lab results. 01/14/25 17:49 01/14/25 17:49 Labs/Radiology: Radiology Impressions Abdomen/Pelvis CT 01/14/25 18:30 IMPRESSION: Nonobstructing right renal calculi. Obstructing left distal ureteral calculus measuring up to 4 mm in maximum dimension, with associated mild hydroureteronephrosis on the left. Laboratory Results WBC 11.92 10^3/uL (3.29-11.43) H 01/14/25 17:49 RBC 4.74 10^6/uL (3.85-5.65) 01/14/25 17:49 Hgb 14.20 g/dL (11.27-16.99) 01/14/25 17:49 Hct 41.8 % (37-53) 01/14/25 17:49 MCV 88.2 fl (82-101) 01/14/25 17:49 MCH 30.0 pg (27-33) 01/14/25 17:49 MCHC 34.0 g/dL (30-55) 01/14/25 17:49 RDW 12.2 % (12.1-15.1) 01/14/25 17:49 Plt Count 313 10^3/cmm (157-399) 01/14/25 17:49 MPV 10.3 fL (7.4-10.4) 01/14/25 17:49 Neut % (Auto) 52.3 % 01/14/25 17:49 Lymph % (Auto) 33.3 % 01/14/25 17:49 [place] % (Auto) 9.1 % 01/14/25 17:49 Eos % (Auto) 3.4 % 01/14/25 17:49 Baso % (Auto) 1.1 % 01/14/25 17:49 Neut # (Auto) 6.24 10^3/uL (1.8-7.7) 01/14/25 17:49 Lymph # (Auto) 4.0 10^3/uL (0.8-4.8) 01/14/25 17:49 [place] # (Auto) 1.1 10^3/uL (0.2-0.9) H 01/14/25 17:49 Eos # (Auto) 0.4 10^3/uL (0.0-0.8) 01/14/25 17:49 Baso # (Auto) 0.1 10^3/uL (0.0-0.1) 01/14/25 17:49 Nucleated RBC % (auto) 0 % 01/14/25 17:49 Nucleated RBCs # 0.0 /100WBC 01/14/25 17:49 Sodium 139 mmol/L (136-145) 01/14/25 17:49 Potassium 4.0 mmol/L (3.5-5.1) 01/14/25 17:49 Chloride 101 mmol/L (98-107) 01/14/25 17:49 Carbon Dioxide 31 mmol/L (22-29) H 01/14/25 17:49 Anion Gap 11.0 (5-19) 01/14/25 17:49 BUN 19 mg/dL (6-20) 01/14/25 17:49 Creatinine 0.7 mg/dL (0.7-1.2) 01/14/25 17:49 GFR Calculation 131.5 mL/min (90-130) H 01/14/25 17:49 Glucose 107 mg/dL (65-115) 01/14/25 17:49 Calculated Osmolality 291 mOsm/kg (285-295) 01/14/25 17:49 Calcium 9.6 mg/dL (8.5-10.5) 01/14/25 17:49 Total Bilirubin 1.0 mg/dL (0.15-1.2) 01/14/25 17:49 AST 22 U/L (0-40) 01/14/25 17:49 ALT 16 U/L (0-41) 01/14/25 17:49 Alkaline Phosphatase 76 U/L (40-130) 01/14/25 17:49 Total Protein 8.0 g/dL (6.6-8.7) 01/14/25 17:49 Albumin 4.8 g/dL (3.5-5.2) 01/14/25 17:49 Globulin 3.2 g/dL (1.3-4.6) 01/14/25 17:49 Urine Color Yellow (Yellow) 01/14/25 18:16 Urine Appearance Slightly cloudy (CLEAR) 01/14/25 18:16 Urine pH TNP 01/14/25 18:16 Ur Specific [place] TNP 01/14/25 18:16 Urine Protein TNP 01/14/25 18:16 Urine Glucose (UA) TNP 01/14/25 18:16 Urine Ketones TNP 01/14/25 18:16 Urine Blood TNP 01/14/25 18:16 Urine Nitrate TNP 01/14/25 18:16 Urine Bilirubin TNP 01/14/25 18:16 Urine Urobilinogen TNP 01/14/25 18:16 Ur Leukocyte Esterase TNP 01/14/25 18:16 Urine RBC 15-25 /hpf (0-2) H 01/14/25 18:16 Urine WBC None /hpf (0-5) 01/14/25 18:16 Ur Squamous Epith Cells None /hpf (0-5) 01/14/25 18:16 Amorphous Sediment Not Reportable 01/14/25 18:16 Urine Bacteria Trace /hpf (NONE) 01/14/25 18:16 All radiology interpretation(s) finalized by discharge Discharge Plan Discharge Patient Disposition: Home Clinical Impression: Calculus of distal left ureter Condition: Stable Prescriptions: New hydrocodone-acetaminophen 5-325 mg tablet 1 tab PO Q6H PRN (Reason: pain) Qty: 14 0RF ketorolac 10 mg tablet 10 mg PO Q8H PRN (Reason: pain) 3 Days Qty: 9 0RF tamsulosin [Flomax] 0.4 mg capsule 0.4 mg PO DAILY Qty: 10 0RF ondansetron 4 mg tablet,disintegrating 4 mg PO Q8H PRN (Reason: nausea and vomiting) Qty: 14 0RF Discontinued diclofenac sodium 75 mg tablet,delayed release (DR/EC) 75 mg PO Q12H PRN (Reason: pain) Qty: 20 0RF Discharge Orders: Discharge ED (Routine); Ordered 01/14/25 Ordered By: Wendy Malone Patient Instructions: Ureteral Stones (ED), Opioid Safety, Pain Management, Patient Portal & Ike Instructions Activity Restrictions/Additional Instructions: As we discussed, you were found to have a 4 mm stone to your left distal ureter. This should pass spontaneously on its own. We did discuss pushing fluids is much as possible and striving for frequent large forceful urinary voids. You may use the prescribed pain medications to you as needed for significant discomfort. Case management should reach out to you to help set you up with your follow-up urology appointment. You were given a urine strainer to begin straining your urine-please bring any past stones with you to your follow-up urology appointment. You need to return to the emergency department for worsening or uncontrollable pain, repetitive episodes of vomiting, fevers, generally feeling worse or unwell, or any other concerns you may have. I hope you begin to feel better soon. Print Language: Vietnamese Coding Level of Care Code ED Advanced Solutions Architect for Gail Rdz
[2025-01-14 18:34] LABS: UA Manual Slide Review YES
[2025-01-14 18:35] LABS: Charge for UA Resulting for Rev
[2025-01-14] MEDS: ondansetron 2 mg/ML SDV 2 mL 4 MG IVP (18:38)
[2025-01-14 19:34] VITALS: BP 110/72; PULSE 73; O2SAT 97
[2025-01-14 20:11] VITALS: BP 122/89; PULSE 71; O2SAT 99
[2025-01-14] MEDS: HYDROcodone-acetaminophen 5-325 mg Tablet 2 TAB PO (20:43)
== END 2025-01-14 20:48 | disposition home or self-care (01) ==
PROVIDERS: Emergency Provider Physician Assistant
DX: N20.1 Calculus of ureter (principal); Z87.442 Personal history of urinary calculi
CPT/HCPCS: 36415; 74176; 80053; 81003; 85025; 96361; 96374; 96375; 99285; J1885; J2405; J7030; J9999; Q0162